=== PATIENT | male | born 1990 | race Asian ===

== ENCOUNTER 2023-05-04 23:24 | Emergency (ER) | payer OTHER ==
[~2023-05-04] VITALS: Ht 188 cm; Wt 98.0 kg
[2023-05-04 23:33] VITALS: TEMP 98.4
[2023-05-05 00:05] VITALS: BP 132/85
== END 2023-05-05 00:05 | disposition left against medical advice (07) ==
LOC: ED 23:24
DX: R07.9 Chest pain, unspecified (principal); F20.0 Paranoid schizophrenia; K21.9 Gastro-esophageal reflux disease without esophagitis; F17.210 Nicotine dependence, cigarettes, uncomplicated; Z53.29 Procedure and treatment not carried out because of patient's decision for other reasons
CPT/HCPCS: 80307; 81002; 99282